=== PATIENT | female | born 1995 | race Caucasian/White ===

== ENCOUNTER 2019-04-21 09:42 | Emergency (ER) | payer BC, OTHER ==
[~2019-04-21] VITALS: Ht 170.2 cm; Wt 117.9 kg
[2019-04-21] MEDS ORDERED: SUPER THERAVIT1 EACH PO (09:57)
[2019-04-21] MEDS ORDERED: SYNTHROID50 MCG PO (09:57)
[2019-04-21 10:00] LABS: URINE BILIRUBIN NEGATIVE (Negative); URINE BLOOD 3+ (Negative); URINE CLARITY CLEAR; URINE COLOR YELLOW; URINE GLUCOSE-RANDOM* NEGATIVE (Negative); URINE KETONES NEGATIVE (Negative); URINE NITRITE-REFLEX NEGATIVE (Negative); URINE PROTEIN (DIPSTICK) NEGATIVE (Negative); URINE UROBILINOGEN 0.2 E.U./dl (0.2-1.0)
[2019-04-21 10:04] LABS: URINE LEUKOCYTES-REFLEX 1+ (Negative)
[2019-04-21 10:49] LABS: CASTS None Seen /LPF (None Seen); CRYSTALS None Seen /LPF (None Seen); SQUAMOUS >10 Many /LPF (0-3)
[2019-04-21 10:50] LABS: URINE RBC >20 Many /HPF (0-2)
[2019-04-21 10:51] LABS: BACTERIA-REFLEX 1-9 Few /HPF (None Seen)
[2019-04-21 11:11] LABS: MCH 29.4 pg (26.0-34.0)
[2019-04-21 11:13] LABS: ABSOLUTE NEUTROPHILS 5.5 thou/uL (1.4-8.2); BASOPHILS 0.9 % (0.0-2.0); EOSINOPHILS 1.4 % (0.0-3.0); HEMATOCRIT 44.4 % (37.0-47.0); HEMOGLOBIN 15.1 gm/dL (12.0-15.0); LYMPHOCYTES 30.3 % (24.0-44.0); MCHC 33.9 g/dL (28.0-37.0); MCV 86.7 fL (80.0-100.0); MONOCYTES 5.3 % (1.0-8.0); PLATELET COUNT 304 thou/uL (150-400); POLYS 62.1 % (36.0-66.0); RBC 5.12 mil/uL (4.20-5.00); WBC 8.8 thou/uL (4.0-11.0)
[2019-04-21 12:34] LABS: CREATININE 0.6 mg/dL (0.6-1.0); POTASSIUM 3.1 mmol/L (3.5-5.1)
[2019-04-21 12:54] LABS: CALCIUM 7.4 mg/dL (8.5-10.1)
[2019-04-21 13:10] VITALS: BP 162/86
[2019-04-21] MEDS ORDERED: ZOFRAN ODT4 MG PO (14:30)
== END 2019-04-21 14:31 | disposition home or self-care (01) ==
LOC: ER 09:42
PROVIDERS: Emergency Medicine
DX: N39.0 Urinary tract infection, site not specified (principal); E03.9 Hypothyroidism, unspecified

== ENCOUNTER 2019-05-17 17:47 | Emergency (ER) | payer BC ==
[~2019-05-17] VITALS: Ht 167.6 cm; Wt 115.7 kg
[~2019-05-17 17:47] MED LIST: SUPER THERAVIT1 EACH PO; SYNTHROID50 MCG PO; ZOFRAN ODT4 MG PO
[2019-05-17 18:47] VITALS: BP 114/59
== END 2019-05-17 19:18 | disposition home or self-care (01) ==
LOC: ER 17:47
DX: S09.90XA Unspecified injury of head, initial encounter (principal); E03.9 Hypothyroidism, unspecified; W22.8XXA Striking against or struck by other objects, initial encounter; Y93.89 Activity, other specified; Y92.89 Other specified places as the place of occurrence of the external cause; Y99.8 Other external cause status

== ENCOUNTER → 2019-08-23 | Outpatient (CLI) | payer OTHER, BC | LOC: RAD 14:00 | DX: M25.562 Pain in left knee (principal); Z98.890 Other specified postprocedural states ==

== ENCOUNTER → 2019-09-06 | Outpatient (CLI) | payer OTHER, BC | LOC: MRI 09:56 | DX: S83.512A Sprain of anterior cruciate ligament of left knee, initial encounter (principal); X58.XXXA Exposure to other specified factors, initial encounter; Y93.89 Activity, other specified; Y92.89 Other specified places as the place of occurrence of the external cause; Y99.8 Other external cause status ==

== ENCOUNTER 2019-12-11 14:18 | Emergency (ER) | payer OTHER ==
[~2019-12-11] VITALS: Ht 170.2 cm; Wt 115.7 kg
[2019-12-11 15:58] LABS: ABSOLUTE NEUTROPHILS 4.4 thou/uL (1.4-8.2); BASOPHILS 0.6 % (0.0-2.0); EOSINOPHILS 1.3 % (0.0-3.0); HEMATOCRIT 41.5 % (37.0-47.0); HEMOGLOBIN 14.2 gm/dL (12.0-15.0); LYMPHOCYTES 32.9 % (24.0-44.0); MCH 29.2 pg (26.0-34.0); MCHC 34.3 g/dL (28.0-37.0); MONOCYTES 6.9 % (1.0-8.0); POLYS 58.3 % (36.0-66.0); RBC 4.89 mil/uL (4.20-5.00); RDW 12.8 % (10.5-14.5); WBC 8.1 thou/uL (4.0-11.0)
[2019-12-11 16:04] LABS: ANION GAP 8 mmol/L (7-16); BUN 12 mg/dL (7-18); CALCIUM 8.5 mg/dL (8.5-10.1); CHLORIDE 105 mmol/L (98-107); CO2 26 mmol/L (21-32); CREATININE 0.6 mg/dL (0.6-1.0); GLUCOSE 91 mg/dL (74-106); POTASSIUM 4.1 mmol/L (3.5-5.1); SODIUM 139 mmol/L (136-145)
[2019-12-11 16:09] LABS: ALBUMIN 3.8 g/dL (3.4-5.0); DIRECT BILIRUBIN < 0.1 mg/dL (<0.1-0.2); LIPASE 98 U/L (73-393); SGOT 19 U/L (15-37); SGPT 28 U/L (30-65); TOTAL BILIRUBIN 0.3 mg/dL (0.2-1.0); TOTAL PROTEIN 7.8 g/dL (6.4-8.2)
[2019-12-11 16:26] LABS: PLATELET COUNT 254 thou/uL (150-400)
[2019-12-11 16:58] LABS: URINE BILIRUBIN NEGATIVE (Negative); URINE BLOOD NEGATIVE (Negative); URINE CLARITY CLEAR; URINE COLOR YELLOW; URINE GLUCOSE-RANDOM* NEGATIVE (Negative); URINE KETONES NEGATIVE (Negative); URINE LEUKOCYTES-REFLEX NEGATIVE (Negative); URINE NITRITE-REFLEX NEGATIVE (Negative); URINE PROTEIN (DIPSTICK) NEGATIVE (Negative); URINE SPECIFIC GRAVITY 1.025 (1.005-1.035); URINE UROBILINOGEN 0.2 E.U./dl (0.2-1.0)
[2019-12-11 18:50] VITALS: BP 138/79
== END 2019-12-11 18:51 | disposition home or self-care (01) ==
LOC: ER 14:18
PROVIDERS: Nurse Practitioner
DX: S39.012A Strain of muscle, fascia and tendon of lower back, initial encounter (principal); E03.9 Hypothyroidism, unspecified; Z90.49 Acquired absence of other specified parts of digestive tract; Z79.899 Other long term (current) drug therapy; X58.XXXA Exposure to other specified factors, initial encounter; Y93.89 Activity, other specified; Y92.89 Other specified places as the place of occurrence of the external cause; Y99.8 Other external cause status

== ENCOUNTER 2019-12-13 20:39 | Emergency (ER) | payer OTHER ==
[~2019-12-13] VITALS: Ht 170.2 cm; Wt 117.0 kg
[2019-12-13 20:41] VITALS: BP 133/80
[2019-12-13] MEDS ORDERED: AZELASTINE137 MCG/0. INH (20:53)
[2019-12-13] MEDS ORDERED: CARAFATE 1 GM TA1 G1 PO (20:53)
== END 2019-12-13 22:00 | disposition home or self-care (01) ==
LOC: ER 20:39
DX: S61.300A Unspecified open wound of right index finger with damage to nail, initial encounter (principal); E03.9 Hypothyroidism, unspecified; Z90.49 Acquired absence of other specified parts of digestive tract; Z79.899 Other long term (current) drug therapy; W26.0XXA Contact with knife, initial encounter; Y93.89 Activity, other specified; Y92.89 Other specified places as the place of occurrence of the external cause; Y99.8 Other external cause status

== ENCOUNTER 2020-04-12 00:04 | Emergency (ER) | payer OTHER ==
[~2020-04-12] VITALS: Ht 170.2 cm; Wt 115.7 kg
[~2020-04-12 00:04] MED LIST changes: +AZELASTINE137 MCG/0. INH; +CARAFATE 1 GM TA1 G1 PO
[2020-04-12] MEDS ORDERED: BUSPIRONE HCL5 MG PO (00:15)
[2020-04-12 02:01] VITALS: BP 117/63
== END 2020-04-12 02:01 | disposition home or self-care (01) ==
LOC: ER 00:04
DX: I80.01 Phlebitis and thrombophlebitis of superficial vessels of right lower extremity (principal); Z90.49 Acquired absence of other specified parts of digestive tract; Z79.899 Other long term (current) drug therapy

== ENCOUNTER 2020-06-15 02:45 | Emergency (ER) | payer OTHER ==
[~2020-06-15] VITALS: Ht 170.2 cm; Wt 90.7 kg
[~2020-06-15 02:45] MED LIST changes: +BUSPIRONE HCL5 MG PO
[2020-06-15 02:55] LABS: URINE BILIRUBIN NEGATIVE (Negative); URINE BLOOD NEGATIVE (Negative); URINE CLARITY CLEAR; URINE COLOR YELLOW; URINE GLUCOSE-RANDOM* NEGATIVE (Negative); URINE KETONES NEGATIVE (Negative); URINE LEUKOCYTES-REFLEX NEGATIVE (Negative); URINE NITRITE-REFLEX NEGATIVE (Negative); URINE PROTEIN (DIPSTICK) NEGATIVE (Negative); URINE SPECIFIC GRAVITY 1.025 (1.005-1.035)
[2020-06-15] MEDS ORDERED: PAMELOR25 MG PO (02:59)
[2020-06-15] MEDS ORDERED: PROAIR HFA8.5 GM INH (02:59)
[2020-06-15 03:44] LABS: ABSOLUTE NEUTROPHILS 6.1 thou/uL (1.4-8.2); BASOPHILS 0.5 % (0.0-2.0); EOSINOPHILS 1.8 % (0.0-3.0); HEMATOCRIT 38.1 % (37.0-47.0); HEMOGLOBIN 12.9 gm/dL (12.0-15.0); LYMPHOCYTES 25.5 % (24.0-44.0); MCH 29.1 pg (26.0-34.0); MCHC 33.9 g/dL (28.0-37.0); MCV 85.8 fL (80.0-100.0); MONOCYTES 9.2 % (1.0-8.0); RBC 4.44 mil/uL (4.20-5.00); RDW 12.4 % (10.5-14.5); WBC 9.7 thou/uL (4.0-11.0)
[2020-06-15 04:01] LABS: CALCIUM 8.5 mg/dL (8.5-10.1); CREATININE 0.9 mg/dL (0.6-1.0); POTASSIUM 4.6 mmol/L (3.5-5.1)
[2020-06-15 04:07] LABS: ALBUMIN 3.4 g/dL (3.4-5.0); TOTAL BILIRUBIN 0.2 mg/dL (0.2-1.0); TOTAL PROTEIN 7.5 g/dL (6.4-8.2)
[2020-06-15 04:12] LABS: PLATELET COUNT 255 thou/uL (150-400)
[2020-06-15 04:37] VITALS: BP 135/75
== END 2020-06-15 04:37 | disposition home or self-care (01) ==
LOC: ER 02:45
PROVIDERS: Emergency Medicine
DX: K59.00 Constipation, unspecified (principal); Z90.49 Acquired absence of other specified parts of digestive tract; Z79.899 Other long term (current) drug therapy

== ENCOUNTER → 2020-07-03 | Outpatient (CLI) | payer OTHER ==
[~2020-07-03] MED LIST changes: +PAMELOR25 MG PO; +PROAIR HFA8.5 GM INH
== END ==
LOC: ULTRA 15:15
PROVIDERS: ATTEND Nurse Practitioner
DX: M79.661 Pain in right lower leg (principal)

== ENCOUNTER 2021-01-12 13:01 | Emergency (ER) | payer OTHER ==
[~2021-01-12] VITALS: Ht 170.2 cm; Wt 127.0 kg
[2021-01-12] MEDS ORDERED: LORAZEPAM 1 MG T1 MG PO (13:08)
[2021-01-12] MEDS ORDERED: XANAX1 MG PO (13:08)
[2021-01-12 14:04] VITALS: BP 132/72
== END 2021-01-12 14:04 | disposition home or self-care (01) ==
LOC: ER 13:01
DX: R09.89 Other specified symptoms and signs involving the circulatory and respiratory systems (principal); Z90.49 Acquired absence of other specified parts of digestive tract; Z79.899 Other long term (current) drug therapy; Z88.7 Allergy status to serum and vaccine

== ENCOUNTER 2021-03-08 18:21 | Emergency (ER) | payer OTHER ==
[~2021-03-08 18:21] MED LIST changes: +LORAZEPAM 1 MG T1 MG PO; +XANAX1 MG PO
[2021-03-08 18:48] VITALS: BP 126/74
--- NOTE | 2021-03-09 07:17 | EKG ---
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
== END 2021-03-08 20:37 | disposition left against medical advice (07) ==
LOC: ER 18:21
DX: R07.89 Other chest pain (principal); M54.2 Cervicalgia; M79.602 Pain in left arm; F11.20 Opioid dependence, uncomplicated; Z90.49 Acquired absence of other specified parts of digestive tract; Z88.7 Allergy status to serum and vaccine; Z53.21 Procedure and treatment not carried out due to patient leaving prior to being seen by health care provider